=== PATIENT | male | born 1975 | race Two or more races ===

== ENCOUNTER 2016-08-31 11:04 | Emergency (ER) | payer SELFPAY ==
--- NOTE | ~2016-08-31 | ER ---
PATIENT'S NAME: PETERSON, [facility] AGE: 41 Y [address] ROOM: [place] [id number] LOCATION: [facility] ADMIT DATE: 08/31/2016 ER/Outpatient Report DISCHARGE DATE: 08/31/2016 FAMILY PHYSICIAN: Physician, Unknown ATTENDING PHYSICIAN: Nikki Flannery Time of Evaluation: 1115 hours. 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 The patient said yesterday he accidentally fell from a roof. He landed on his feet. The patient presents complaining of severe pain in his right heel and ankle, also some discomfort or pain in his right knee and left ankle. The patient denied any back pain. ALLERGIES: NO MEDICINAL ALLERGIES. HOME MEDICATIONS: None. PAST MEDICAL HISTORY: Unremarkable for any previous injuries or chronic health problems. SOCIAL HISTORY: Denies any alcohol or tobacco use. 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 REVIEW OF SYSTEMS: GENERAL: Health good. HEAD AND EENT: Denies any head or neck pain. RESPIRATORY: Negative. CARDIOVASCULAR: Negative. GASTROINTESTINAL: No abdominal pain. MUSCULOSKELETAL: Includes right ankle, right heel, and right knee pain and some left ankle pain. Denied back pain. OBJECTIVE FINDINGS: VITAL SIGNS: Blood pressure was 133/75 and a temperature of 99.4, respiratory rate 18, pulse 80, and O2 saturations 100%. GENERAL APPEARANCE: He did not speak fluent [place]. The patient did have a family member who spoke good [place]ovan. He appeared healthy. HEAD AND EENT: No palpable tenderness in the cervical area. HEART: Regular rhythm. ABDOMEN: Soft, nontender. BACK: No tenderness to palpation up and down his spine. PATIENT'S NAME: PETERSON, [facility] AGE: 41 Y [address] ROOM: [place], [place] [address] LOCATION: [facility] ADMIT DATE: 08/31/2016 ER/Outpatient Report DISCHARGE DATE: 08/31/2016 FAMILY PHYSICIAN: Physician, Unknown ATTENDING PHYSICIAN: Nikki Flannery MUSCULOSKELETAL: Right ankle was swollen. There was presence of ecchymotic areas. Heel was quite tender. Right knee showed no obvious swelling, slightly tender medially. Exam of the left ankle showed no gross swelling. No significant heel tenderness. IMAGING DATA: X-rays of right knee showed no tibial plateau fractures. The right ankle appeared normal; however, his right calcaneus showed a fracture through the mid body. No significant comminution or deformity. X-rays of left ankle and left calcaneus, no obvious fractures. ASSESSMENT: 1. Fall from roof. 2. Right calcaneal fracture. PLAN: I talked with Dr. Mai, orthopedically impaired teacher by phone. His recommendations; if he could tolerate going home, just apply a boot having keep it elevated, ice, and then follow up with him tomorrow. CT scan is also done today and requested by Dr. Mai. The patient's right leg was put in a boot. He was put on crutches. He was advised to keep his right leg elevated above his heart. No weightbearing. The patient was given a script for [place] 5/325 two about every [address] Mai tomorrow at about 8:30. MAG SHARIF FOR MD CLAU GEORGE/ronit /[id number] d: 08/31/16 1713 t: 09/08/16 1210, OUTPATIENT REPORT
== END 2016-08-31 12:36 | disposition disaster alternative care site (69) ==
LOC: GACC 11:04
DX: S92.011A Displaced fracture of body of right calcaneus, initial encounter for closed fracture (principal); W17.89XA Other fall from one level to another, initial encounter; Y99.0 Civilian activity done for income or pay